=== PATIENT | male | born 1935 | race African-American/Black ===

== ENCOUNTER 2018-01-24 15:47 | Emergency (ER) | payer OTHER ==
[~2018-01-24] VITALS: Ht 175.3 cm; Wt 71.7 kg
== END 2018-01-24 21:02 | disposition home or self-care (01) ==
LOC: ER 15:47
DX: I82.411 Acute embolism and thrombosis of right femoral vein (principal); I82.431 Acute embolism and thrombosis of right popliteal vein; I82.890 Acute embolism and thrombosis of other specified veins; E03.8 Other specified hypothyroidism; M79.604 Pain in right leg

== ENCOUNTER 2018-04-04 14:23 | Emergency (ER) | payer OTHER ==
[~2018-04-04] VITALS: Ht 180.3 cm; Wt 70.3 kg
[2018-04-04] MEDS ORDERED: XARELTO15 MG (14:41)
[2018-04-04] MEDS ORDERED: TAMS0.4C (14:42)
[2018-04-04] MEDS ORDERED: FENOFIBRATE145 MG (14:42)
== END 2018-04-04 17:02 | disposition home or self-care (01) ==
LOC: ER 14:23
DX: R21 Rash and other nonspecific skin eruption (principal); T78.49XA Other allergy, initial encounter; X58.XXXA Exposure to other specified factors, initial encounter

== ENCOUNTER 2021-01-16 14:47 | Emergency (ER) | payer OTHER ==
[~2021-01-16] VITALS: Ht 180.3 cm; Wt 73.5 kg
[~2021-01-16 14:47] MED LIST: FENOFIBRATE145 MG; TAMS0.4C; XARELTO15 MG
[2021-01-16] MEDS ORDERED: LOSARTAN POTASS50 MG PO (14:57)
[2021-01-16] MEDS ORDERED: LIPITOR40 MG PO (14:57)
[2021-01-16] MEDS ORDERED: LEVOTHYROXINE25 MC2 PO (14:58)
[2021-01-16] MEDS ORDERED: SERTRALINE20 MG/1 ML PO (14:58)
[2021-01-16] MEDS ORDERED: MEMANTINE HCL5 MG PO (14:58)
== END 2021-01-16 22:04 | disposition home or self-care (01) ==
LOC: ER 14:47
DX: R21 Rash and other nonspecific skin eruption (principal); M25.48 Effusion, other site

== ENCOUNTER 2021-01-30 13:47 | Emergency (ER) | payer OTHER ==
[~2021-01-30] VITALS: Ht 180.3 cm; Wt 72.6 kg
[~2021-01-30 13:47] MED LIST changes: +LEVOTHYROXINE25 MC2 PO; +LIPITOR40 MG PO; +LOSARTAN POTASS50 MG PO; +MEMANTINE HCL5 MG PO; +SERTRALINE20 MG/1 ML PO
== END 2021-01-30 19:43 | disposition home or self-care (01) ==
LOC: ER 13:47
DX: L29.8 Other pruritus (principal); R42 Dizziness and giddiness

== ENCOUNTER → 2021-10-23 | Emergency (ER) | payer OTHER ==
[~2021-10-23] VITALS: Ht 180.3 cm; Wt 74.8 kg
[~2021-10-23] MED LIST changes: +ASA81 MG PO
== END | disposition left against medical advice (07) ==
LOC: ER 23:34
DX: Z53.21 Procedure and treatment not carried out due to patient leaving prior to being seen by health care provider (principal)